=== PATIENT | male | born 1990 | race African-American/Black ===

== ENCOUNTER 2017-03-20 14:13 | Emergency (ER) | payer OTHER ==
[~2017-03-20] VITALS: Ht 182.9 cm; Wt 116.0 kg
[2017-03-20 14:17] VITALS: BP 140/79; PULSE 74; RESP 20; TEMP 98.5; O2SAT 99
[2017-03-20] MEDS ORDERED: KETOROLAC TROMETHAMINE 60 MG/2 ML (IM) VIAL IM ONE (15:45)
[2017-03-20] MEDS ORDERED: ORPHENADRINE INJ 60 MG/2 ML AMP IM ONE (15:45)
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
[2017-03-20] MEDS ORDERED: CYCL1TAB29 PO (16:43)
[2017-03-20] MEDS ORDERED: IBUP800T23 PO (16:43)
== END 2017-03-20 16:52 | disposition home or self-care (01) ==
LOC: NEPD 14:13
DX: S16.1XXA Strain of muscle, fascia and tendon at neck level, initial encounter (principal); M62.838 Other muscle spasm; R68.84 Jaw pain; V43.52XA Car driver injured in collision with other type car in traffic accident, initial encounter
CPT/HCPCS: 70150; 72040; 96372; 99284; J1885; J2360; L0150